=== PATIENT | female | born 1995 | race African-American/Black ===

== ENCOUNTER 2017-05-20 22:19 | Emergency (ER) | payer OTHER ==
[~2017-05-20] VITALS: Ht 165.1 cm; Wt 52.3 kg
[~2017-05-20 22:19] MED LIST: TESSALON200 MG PO
[2017-05-20 23:33] LABS: HEMATOCRIT 41.7 % (36.0-46.0); MCH 28.8 PG (29.0-34.0); MCHC 34.1 G/DL (30.0-36.0); MCV 84.6 FL (83-99); MEAN PLAT.VOLUME 8.9 uM^3 (9.5-12.4); PLATELET COUNT 277 K/uL (156-360); RBC DIS.WIDTH-CV 12.4 % (11.8-14.6); RBC DIS.WIDTH-SD 37.2 % (39-53); RED BLOOD COUNT 4.93 M/uL (3.80-5.20); WHITE BLOOD COUNT 6.2 K/uL (4.1-10.2)
[2017-05-21 00:24] LABS: CHLORIDE 106 mEq/L (99-109); POTASSIUM 3.3 mEq/L (3.7-5.4); SODIUM 137 mEq/L (136-147)
[2017-05-21 00:26] LABS: GLUCOSE 97 mg/dL (70-99)
[2017-05-21 00:27] LABS: ANION GAP 12 MEQ/L (2-14)
[2017-05-21 00:28] LABS: TOTAL BILIRUBIN 0.5 mg/dL (0.0-1.0)
[2017-05-21 00:29] LABS: ALKALINE PHOSPHATASE 57 IU/L (3-129)
[2017-05-21 00:30] LABS: GFR ESTIMATE (CALCULATED) > 59 mL/min/
[2017-05-21 00:33] LABS: LIPASE 10 U/L (1.0-51.0)
[2017-05-21 00:47] LABS: QUANTITATIVE HCG 130508.5 MIU/ML
[2017-05-21 00:53] LABS: UREA NITROGEN (BUN) 7 mg/dL (9-23)
[2017-05-21] MEDS ORDERED: PYRIDOXINE HCL25 MG PO (03:25)
[2017-05-21 03:50] VITALS: BP 124/93
== END 2017-05-21 03:50 | disposition home or self-care (01) ==
LOC: EME 22:19
DX: O99.611 Diseases of the digestive system complicating pregnancy, first trimester (principal); K52.9 Noninfective gastroenteritis and colitis, unspecified; O26.891 Other specified pregnancy related conditions, first trimester; R30.0 Dysuria; Z3A.12 12 weeks gestation of pregnancy
CPT/HCPCS: 80053; 81003; 83690; 84702; 85027; 99281; 99284

== ENCOUNTER 2017-09-02 13:34 | Outpatient (CLI) | payer OTHER ==
[2017-09-02] VITALS (11 sets, daily range): BP systolic 103–121; BP diastolic 64–73
[~2017-09-02] VITALS: Ht 165.1 cm; Wt 60.0 kg
[~2017-09-02 13:34] MED LIST changes: +PYRIDOXINE HCL25 MG PO
[2017-09-02 14:36] LABS: EOSINOPHIL (%) 0.8 % (0-5); EOSINOPHIL COUNT 0.1 K/uL (0-0.3); HEMATOCRIT 32.7 % (36.0-46.0); IMMATURE GRANULOCYTE (%) 0.5 % (0.0-0.7); IMMATURE GRANULOCYTE COUNT 0.1 K/uL; INSTRUMENT ABS NEUTROPHIL CT 8.2 K/uL; LYMPHOCYTE COUNT 1.3 K/uL (1.0-2.8); MCH 29.6 PG (29.0-34.0); MCHC 33.6 G/DL (30.0-36.0); MCV 87.9 FL (83-99); MEAN PLAT.VOLUME 9.3 uM^3 (9.5-12.4); MONOCYTE (%) 6.5 % (3-12); MONOCYTE COUNT 0.7 K/uL (0-0.8); NEUTROPHIL (%) 79.2 % (45-76); NEUTROPHIL COUNT 8.2 K/uL (1.8-6.4); PLATELET COUNT 222 K/uL (156-360); RBC DIS.WIDTH-CV 12.4 % (11.8-14.6); RBC DIS.WIDTH-SD 39.6 % (39-53); RED BLOOD COUNT 3.72 M/uL (3.80-5.20); WHITE BLOOD COUNT 10.3 K/uL (4.1-10.2)
[2017-09-02 14:55] LABS: ADD MIUA? YES; BILIRUBIN NEGATIVE; BLOOD NEGATIVE; COLOR YELLOW ((YELLOW)); GLUCOSE (STRIP) NEGATIVE; KETONES 20; LEUKOCYTES SMALL; NITRITE NEGATIVE; PROTEIN (STRIP) NEGATIVE; SPECIFIC GRAVITY 1.018 (1.000-1.030); UROBILINOGEN 0.2 MG/DL (0.2-1.0)
[2017-09-02 15:16] LABS: AMPHETAMINES QUANT VALUE 0 NG/ML; BARBITUATES QUANT VALUE 0 NG/ML; BENZODIAZEPINES QUANT VALUE 0 NG/ML; BENZODIAZEPINES, URINE SCREEN Negative (200 ng/mL); MARIJUANA QUANT VALUE 0 NG/ML; OPIATES QUANTITATIVE VALUE 0 NG/ML; PHENCYCLIDINE QUANT VALUE 0 NG/ML
[2017-09-02 15:22] LABS: ANION GAP 11 MEQ/L (2-14); CHLORIDE 105 MEQ/L (99-109); POTASSIUM 3.6 MEQ/L (3.7-5.4); SAMPLE HEMOLYSIS CHECK 0; SAMPLE ICTERIC CHECK 0; SAMPLE LIPEMIA CHECK 0; SODIUM 137 MEQ/L (136-147); TOTAL BILIRUBIN 0.2 MG/DL (0.0-1.0)
[2017-09-02 15:28] LABS: ALKALINE PHOSPHATASE 106 IU/L (3-129); GFR ESTIMATE (CALCULATED) > 59 mL/min/; GLUCOSE 77 mg/dL (70-99); UREA NITROGEN (BUN) 8 mg/dL (9-23)
[2017-09-02 16:04] LABS: BACTERIA 1+ /HPF; CASTS NONE SEEN /LPF; CRYSTALS NONE SEEN; EPITHELIAL CELLS NONE SEEN /HPF; MUCUS NONE SEEN /LPF; RED BLOOD CELLS 0-5 /HPF (0-5); UCUL ADDED? YES; WHITE BLOOD CELLS 20-30 /HPF (0-5)
[2017-09-02 16:10] LABS: DRSB INTERNAL CONTROL PASS; PROBE CHECK PASS; SPECIMEN PROCESSING CONTROL PASS
[2017-09-02 17:16] LABS: ADD MIUA? YES; BILIRUBIN NEGATIVE; BLOOD NEGATIVE; COLOR YELLOW ((YELLOW)); GLUCOSE (STRIP) NEGATIVE; KETONES 20; LEUKOCYTES SMALL; NITRITE NEGATIVE; PROTEIN (STRIP) NEGATIVE; SPECIFIC GRAVITY 1.015 (1.000-1.030); UROBILINOGEN 0.2 MG/DL (0.2-1.0)
[2017-09-02 17:26] LABS: CANDIDA DNA PROBE NEGATIVE; GARDNERELLA DNA PROBE POSITIVE; INTERNAL CONTROL VALID? YES
[2017-09-03 13:39] LABS: CHLAMYDIA TRACHOMATIS NEGATIVE; NEISSERIA GONORRHOEAE NEGATIVE
== END 2017-09-02 20:45 | disposition short-term general hospital (02) ==
LOC: LDRP-OP 13:34 → 2WEST 13:35 → LDRP-OP 01-06 13:12
PROVIDERS: Advanced Practice Midwife; Obstetrics & Gynecology
DX: O60.02 Preterm labor without delivery, second trimester (principal); Z3A.26 26 weeks gestation of pregnancy; O36.1920 Maternal care for other isoimmunization, second trimester, not applicable or unspecified; Z86.19 Personal history of other infectious and parasitic diseases
CPT/HCPCS: 59025; 76805; 80053; 80306 90; 81003; 82731; 85025; 87081; 87086; 87480; 87491; 87510; 87591; 87653; 87660; G0378; J0702; J2540; J3475; J7120

== ENCOUNTER 2017-10-28 17:53 | Inpatient (IN) | payer OTHER ==
[~2017-10-28] VITALS: Ht 162.6 cm; Wt 64.0 kg
[2017-10-28 19:14] LABS: EOSINOPHIL (%) 0.8 % (0-5); EOSINOPHIL COUNT 0.1 K/uL (0-0.3); HEMATOCRIT 33.2 % (36.0-46.0); IMMATURE GRANULOCYTE (%) 0.8 % (0.0-0.7); IMMATURE GRANULOCYTE COUNT 0.1 K/uL; INSTRUMENT ABS NEUTROPHIL CT 7.2 K/uL; LYMPHOCYTE COUNT 1.6 K/uL (1.0-2.8); MCH 28.1 PG (29.0-34.0); MCHC 32.5 G/DL (30.0-36.0); MCV 86.5 FL (83-99); MEAN PLAT.VOLUME 9.1 uM^3 (9.5-12.4); MONOCYTE (%) 7.1 % (3-12); MONOCYTE COUNT 0.7 K/uL (0-0.8); NEUTROPHIL (%) 74.3 % (45-76); NEUTROPHIL COUNT 7.2 K/uL (1.8-6.4); PLATELET COUNT 239 K/uL (156-360); RBC DIS.WIDTH-CV 12.8 % (11.8-14.6); RBC DIS.WIDTH-SD 40.1 % (39-53); RED BLOOD COUNT 3.84 M/uL (3.80-5.20); WHITE BLOOD COUNT 9.6 K/uL (4.1-10.2)
[2017-10-28 20:33] VITALS: BP 128/79
[2017-10-28] MEDS ORDERED: PRENATAL VITAM1 EA11 PO (22:44)
[2017-10-29] VITALS (16 sets, daily range): BP systolic 107–123; BP diastolic 56–76
== END 2017-10-30 00:30 | disposition home or self-care (01) | DRG 778 ==
LOC: LDRP-OP 17:53 → 2WEST 17:56 → LDRP-OP 01-06 21:12
PROVIDERS: Advanced Practice Midwife
DX: O60.03 Preterm labor without delivery, third trimester (principal); O76 Abnormality in fetal heart rate and rhythm complicating labor and delivery; O36.5930 Maternal care for other known or suspected poor fetal growth, third trimester, not applicable or unspecified; Z3A.34 34 weeks gestation of pregnancy
CPT/HCPCS: 76805; 76818; 80306 90; 81003; 85025; 86850; 86870; 86900; 86901; 86905; 86920; G0378; J0702; J2540; J3105; J7120

== ENCOUNTER 2017-11-13 16:53 | Inpatient (IN) | payer OTHER ==
[2017-11-13] VITALS (19 sets, daily range): BP systolic 95–130; BP diastolic 53–84
[~2017-11-13 16:53] MED LIST changes: +PRENATAL VITAM1 EA11 PO
[2017-11-13 18:33] LABS: BASOPHIL (%) 0.2 % (0-1); EOSINOPHIL (%) 1.2 % (0-5); EOSINOPHIL COUNT 0.1 K/uL (0-0.3); HEMATOCRIT 31.9 % (36.0-46.0); HEMOGLOBIN 10.3 G/DL (11.9-15.5); IMMATURE GRANULOCYTE (%) 0.8 % (0.0-0.7); LYMPHOCYTE (%) 15.1 % (15-42); LYMPHOCYTE COUNT 1.4 K/uL (1.0-2.8); MCH 27.3 PG (29.0-34.0); MCHC 32.3 G/DL (30.0-36.0); MCV 84.6 FL (83-99); MONOCYTE (%) 8.4 % (3-12); MONOCYTE COUNT 0.8 K/uL (0-0.8); NEUTROPHIL (%) 74.3 % (45-76); PLATELET COUNT 186 K/uL (156-360); RBC DIS.WIDTH-CV 12.9 % (11.8-14.6); RBC DIS.WIDTH-SD 38.7 % (39-53); RED BLOOD COUNT 3.77 M/uL (3.80-5.20); WHITE BLOOD COUNT 9.4 K/uL (4.1-10.2)
[2017-11-13 22:44] LABS: Estimated Average Glucose 105 mg/dL (70-123); HEMOGLOBIN A1c (GLYCOHEMOGLOB) 5.3 % HGB (Below 5.7)
[2017-11-14 00:55] VITALS: BP 102/56
[2017-11-14 07:00] LABS: BASOPHIL (%) 0.2 % (0-1); EOSINOPHIL (%) 1.5 % (0-5); EOSINOPHIL COUNT 0.2 K/uL (0-0.3); HEMATOCRIT 28.8 % (36.0-46.0); HEMOGLOBIN 9.4 G/DL (11.9-15.5); IMMATURE GRANULOCYTE (%) 0.5 % (0.0-0.7); LYMPHOCYTE (%) 16.6 % (15-42); LYMPHOCYTE COUNT 1.8 K/uL (1.0-2.8); MCH 28.1 PG (29.0-34.0); MCHC 32.6 G/DL (30.0-36.0); MONOCYTE (%) 10.7 % (3-12); MONOCYTE COUNT 1.2 K/uL (0-0.8); NEUTROPHIL (%) 70.5 % (45-76); NEUTROPHIL COUNT 7.7 K/uL (1.8-6.4); PLATELET COUNT 172 K/uL (156-360); RBC DIS.WIDTH-SD 40.1 % (39-53); RED BLOOD COUNT 3.35 M/uL (3.80-5.20); WHITE BLOOD COUNT 10.8 K/uL (4.1-10.2)
[2017-11-14 07:23] VITALS: BP 100/59
[2017-11-14 23:00] VITALS: BP 114/59
[2017-11-15 07:48] VITALS: BP 119/76
== END 2017-11-15 12:39 | disposition home or self-care (01) | DRG 775 ==
LOC: LDRP-OP 16:53 → 2WEST 16:54 → LDRP-OP 01-12 01:10
PROVIDERS: Advanced Practice Midwife
DX: O60.14X0 Preterm labor third trimester with preterm delivery third trimester, not applicable or unspecified (principal); O36.5930 Maternal care for other known or suspected poor fetal growth, third trimester, not applicable or unspecified; O36.1930 Maternal care for other isoimmunization, third trimester, not applicable or unspecified; O99.02 Anemia complicating childbirth; D62 Acute posthemorrhagic anemia; O99.89 Other specified diseases and conditions complicating pregnancy, childbirth and the puerperium; M54.31 Sciatica, right side; Z3A.36 36 weeks gestation of pregnancy; Z37.0 Single live birth
CPT/HCPCS: 83036; 85025; 86850; 86870; 86900; 86901; 86905; 86920; C1755; J2540; J3010; J7120